=== PATIENT | male | born 1970 | race Caucasian/White ===

== ENCOUNTER 2016-12-20 12:43 | Inpatient (IN) | payer OTHER, SELFPAY ==
[~2016-12-20] VITALS: Ht 167.6 cm; Wt 92.1 kg
[2016-12-20 15:30] LABS: MEAN CORPUSCULAR HGB CONC 31.7 g/dl (32.0-36.5); MEAN CORPUSCULAR VOLUME 91.6 fl (80.0-96.0); RED CELL DISTRIBUTION WIDTH 13.1 % (11.5-14.5); WHITE BLOOD COUNT 7.3 K/mm3 (4.0-10.0)
[2016-12-20 15:48] LABS: METHADONE URINE NEGATIVE (NEGATIVE)
[2016-12-20 15:59] LABS: ALBUMIN 3.7 GM/DL (3.2-5.2); ALBUMIN/GLOBULIN RATIO 1.06 (1.00-1.93); ALKALINE PHOSPHATASE 70 U/L (45-117); ALT/SGPT 36 U/L (12-78); ANION GAP 9 MEQ/L (8-16); AST/SGOT 20 U/L (15-37); BILIRUBIN,DIRECT < 0.1 MG/DL (0.0-0.2); BILIRUBIN,TOTAL 0.3 MG/DL (0.2-1.0); BLOOD UREA NITROGEN 12 MG/DL (7-18); CALCIUM LEVEL 8.8 MG/DL (8.5-10.1); CARBON DIOXIDE LEVEL 29 MEQ/L (21-32); CHLORIDE LEVEL 105 MEQ/L (98-107); CREATININE FOR GFR 1.54 MG/DL (0.70-1.30); GLOMERULAR FILTRATION RATE 52.3 (>60); GLUCOSE, FASTING 134 MG/DL (70-105); SODIUM LEVEL 143 MEQ/L (136-145); TOTAL PROTEIN 7.2 GM/DL (6.4-8.2)
[2016-12-21] MEDS: SERTRALINE HCL 50 MG TAB PO SCH (09:00)
--- NOTE | 2016-12-21 09:26 | ECGEPIP ---
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
[2016-12-21] MEDS ORDERED: MAALOX 30 ML SUSP *UDC PO PRN (11:45)
[2016-12-21] MEDS ORDERED: LORazepam 1 MG TAB PO PRN (11:45)
[2016-12-21] MEDS ORDERED: traZODone 50 MG TAB PO PRN (11:45)
[2016-12-21] MEDS ORDERED: MOM 30ML SUSPENSION UDC PO PRN (11:45)
[2016-12-21] MEDS ORDERED: ACETAMINOPHEN TAB 650MG DOSE (2X325MG) PO PRN (11:45)
[2016-12-21 13:19] VITALS: BP 134/72
[2016-12-21 18:00] VITALS: BP 120/74
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
[2016-12-22 06:33] VITALS: BP 115/56
[2016-12-22] MEDS: SERTRALINE HCL 50 MG TAB PO SCH (08:45)
--- NOTE | 2016-12-22 09:52 | HPEPDOC ---
Medical History and Physical Date of Admission Dec 21, 2016 at 11:38 History and Physical PCP: KR[facility] ATTENDING: Dr. Eric Grubbs HPI: 46yoM admitted to [facility] for depression with SI, being medically examined today. No acute medical complaints today. Denies any fevers, chills, weakness, fatigue, BRAVO, CP, SOB, cough, palpitations, abdominal pain, N/V/D or changes in bowel or bladder habits. PMHx: Depression H/O SI 20 years ago. 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 ROS: As noted in HPI, otherwise 11pt ROS of systems reviewed and unremarkable. PE: GEN: 46yoM, appears stated age. Well-nourished, well developed. No acute distress. Alert and oriented x 3. Pleasant, interactive. HEENT: Normocephalic, atraumatic. Pupils are equal, round, and reactive to light. Extraocular movements are intact. No nystagmus appreciated. Sclera are nonicteric. Conjunctiva without injection. Nose midline. Nasal turbinates without bogginess. EACs both patent BL. TMs both visualized and mckeon with good cone of light, no bulging or erythema. No facial asymmetry. Moist mucous membranes. Dentition fair. Pharynx pink and moist, no cobblestoning. Neck supple , trachea midline. No lymphadenopathy or thyromegaly appreciated. CHEST: Regular rate and rhythm, +S1, +S2 LUNGS: Clear to auscultation bilaterally. No wheezes, rales, or rhonchi. Breathing appears symmetric and easy. Patient is speaking in full sentences. No accessory muscle use. ABD: Round, soft, non-tender, non-distended. +Bowel sounds throughout. No rebound or guarding. No costovertebral angle tenderness. EXT: Pulses 2+ bilaterally dorsalis pedis and radial. No lower extremity edema appreciated. SKIN: [place], dry, warm. Capillary refill <2sec. No rashes. NEURO: Alert and oriented x 3. Cranial nerves III-XII are intact. No focal deficits appreciated. EK12/20/16 SINUS RHYTHM NSTTW ABNORMALITY NO PRIOR FOR COMPARISON . A&P: 46yoM admitted to [facility] for depression with SI 1. Psych. Plan per Psychiatry. EKG on file. 2. elevated SCr. Serum creatinine 1.54 on admission. No prior results in chart. States he is eating and drinking better. Recheck BMP. 3. Abnormal TSH. Recheck TFTs. 4. Follow up with PCP on discharge. 5. Luis safety assistant, present throughout exam. Vital Signs Vital Signs Date Time Temp Pulse Resp B/P (MAP) Pulse Ox O2 Delivery O2 Flow Rate FiO2 12/22/16 06:33 98.5 66 16 115/56 (75) Room Air 12/21/16 13:19 98 Laboratory Data Labs 24H Item Value Date Time White Blood Count 7.3 K/mm3 12/20/16 1519 Red Blood Count 5.08 M/mm3 12/20/16 1519 Hemoglobin 14.7 g/dl 12/20/16 1519 Hematocrit 46.5 % 12/20/16 1519 Mean Corpuscular Volume 91.6 fl 12/20/16 1519 Mean Corpuscular Hemoglobin 29.0 pg 12/20/16 1519 Mean Corpuscular Hemoglobin Concent 31.7 g/dl L 12/20/16 1519 Red Cell Distribution Width 13.1 % 12/20/16 1519 Platelet Count 310 k/mm3 12/20/16 1519 Sodium Level 143 MEQ/L 12/20/16 1519 Potassium Level 4.0 MEQ/L 12/20/16 1519 Chloride Level 105 MEQ/L 12/20/16 1519 Carbon Dioxide Level 29 MEQ/L 12/20/16 1519 Anion Gap 9 MEQ/L 12/20/16 1519 Blood Urea Nitrogen 12 MG/DL 12/20/16 1519 Creatinine 1.54 MG/DL H 12/20/16 1519 Glomerular Filtration Rate 52.3 L 12/20/16 1519 Fasting Glucose 134 MG/DL H 12/20/16 1519 Calcium Level 8.8 MG/DL 12/20/16 1519 Total Bilirubin 0.3 MG/DL 12/20/16 1519 Direct Bilirubin < 0.1 MG/DL 12/20/16 1519 Aspartate Amino Transf (AST/SGOT) 20 U/L 12/20/16 1519 Alanine Aminotransferase (ALT/SGPT) 36 U/L 12/20/16 1519 Alkaline Phosphatase 70 U/L 12/20/16 1519 Total Protein 7.2 GM/DL 12/20/16 1519 Albumin 3.7 GM/DL 12/20/16 1519 Albumin/Globulin Ratio 1.06 12/20/16 1519 Thyroid Stimulating Hormone (TSH) 0.322 uIU/ML L 12/20/16 1519 Salicylates Level < 1.7 MG/DL L 12/20/16 1519 Urine Opiates Screen NEGATIVE 12/20/16 1515 Urine Methadone Screen NEGATIVE 12/20/16 1515 Acetaminophen Level < 2.0 UG/ML L 12/20/16 1519 Urine Barbiturates Screen NEGATIVE 12/20/16 1515 Urine Phencyclidine Screen NEGATIVE 12/20/16 1515 Urine Amphetamines Screen NEGATIVE 12/20/16 1515 Urine Benzodiazepines Screen NEGATIVE 12/20/16 1515 Urine Cocaine Metabolite Screen NEGATIVE 12/20/16 1515 Urine Cannabinoids Screen NEGATIVE 12/20/16 1515 Ethyl Alcohol Level 0.003 % 12/20/16 1519 Home Medications No Active Prescriptions or Reported Meds Allergies Coded Allergies: No Known Allergies (Unverified , 12/20/16) Andreia Kelly Dec 22, 2016 09:52
[2016-12-22 11:19] LABS: CALCIUM LEVEL 8.7 MG/DL (8.5-10.1); CREATININE FOR GFR 1.41 MG/DL (0.70-1.30); GLOMERULAR FILTRATION RATE 57.9 (>60); POTASSIUM SERUM 4.3 MEQ/L (3.5-5.1); THYROXINE (T4) 7.1 UG/DL (4.5-12.0)
--- NOTE | 2016-12-22 17:56 | IPNPDOC ---
[facility] Progress Note Progress Note DATE OF SERVICE: 12/22/16 HISTORY: 46 year old male with history of recently being admitted to the [facility]. Reportedly he was suicidal when he came to the emergency room but he has consistently denied this. He admits he was upset because his ex girlfriend, from whom he has been for about three weeks, called the police when he trespassed her property because he needed to talk to her because she has been smoking marijuana with her new boyfriend in front of the patient's son (she 's the mother). He got a restriction order and was fired from his job. he claims he is not willing to kill himself and that he knows how to handle this situation because he went through this before, with his first . he was started on zoloft 50 mgs. PO QAm but he refuse his medication this morning and he thinks he doesn't need it. VITAL SIGNS: See below. NEW TEST RESULTS: None CURRENT MEDICATIONS: See below. MENTAL STATUS EXAMINATION: Patient is a 46-year old male, who is alert, oriented, cooperative, friendly, with good eye contact and good rapport. Speech: Is normal. Language skills are good. Thought processes including: coherent, rationa. Thought content: Negative for homicidal ideation, negative for psychotic thoughts, negative for suicidal ideation.. Abstract reasoning, and computation: fair. Description of associations: No loosening of associations. Description of abnormal or psychotic thoughts: Not present. Judgment: Improving. Insight: Limited. Orientation: Oriented x 3. Recent and remote memory: Intact. Attention span and concentration: Fair. Language: Normal. Fund of knowledge: Full. Mood: "I'm not depressed, I can't get depressed. My children depend on me" Affect: Brighter, less amxious, les depressed DIAGNOSES: 1. Adjustment Disorder with depressed mood. ASSESSMENT:Pt. is much better today. He smiles, has a brighter affect. If he continues to be stable, even without medications, since he reused his Zoloft, he will be able to go home on Sunday. MANAGEMENT PLAN: continue hospitalization and re evaluate on Sunday for possible discharge. TIME SPENT: 25 minutes. Vital Signs Vital Signs Date Time Temp Pulse Resp B/P (MAP) Pulse Ox O2 Delivery O2 Flow Rate FiO2 12/22/16 06:33 98.5 66 16 115/56 (75) Room Air 12/21/16 13:19 98 Laboratory Data 24H Labs Laboratory Tests 2 12/22/16 10:34: Anion Gap 4L, Glomerular Filtration Rate 57.9L, Blood Urea Nitrogen 11, Creatinine 1.41H, Sodium Level 142, Potassium Level 4.3, Chloride Level 106, Carbon Dioxide Level 32, Calcium Level 8.7, Thyroid Stimulating Hormone (TSH) 0.342L, Free Thyroxine Index 2.4, Thyroxine (T4) 7.1, Triiodothyronine (T3) Uptake 34 CBC/BMP Laboratory Tests 12/22/16 10:34 Calcium Level 8.7 Current Medications Current Medications Acetaminophen (Tylenol Tab) 650 mg Q6HP PRN PO HEADACHE or DISCOMFORT; Start at 11:45; Stop 01/20/17 at 11:44 Al Hydrox/Mg Hydrox/Simethicone (Mylanta) 30 ml Q4HP PRN PO HEARTBURN/ INDIGESTION; Start 12/21/16 at 11:45; Stop 01/20/17 at 11:44 Home Med (Med Rec Complete!) ASDIRECTED XX ; Start 12/21/16 at 12:00; Stop at 12:00; Status DC Lorazepam (Ativan) 1 mg Q6HP PRN PO ANXIETY/AGITATION; Start 12/21/16 at 11:45 ; Stop 12/28/16 at 11:44 Magnesium Hydroxide (Milk Of Magnesia) 30 ml DAILYPRN PRN PO CONSTIPATION; Start 12/21/16 at 11:45; Stop 01/20/17 at 11:44 Sertraline HCl (Zoloft) 50 mg QAM PO ; Start 12/21/16 at 09:00; Stop 01/20/17 at 08:59 Trazodone HCl (Desyrel) 50 mg QHSP PRN PO INSOMNIA; Start 12/21/16 at 11:45; Stop 01/20/17 at 11:44 Allergies Coded Allergies: No Known Allergies (Unverified , 12/20/16) LEA BENJAMIN MD Dec 22, 2016 17:56
[2016-12-22 18:00] VITALS: BP 133/61
[2016-12-23 06:19] VITALS: BP 125/60
[2016-12-23] MEDS: SERTRALINE HCL 50 MG TAB PO SCH (08:43)
[2016-12-23 18:00] VITALS: BP 132/61
[2016-12-24 07:00] VITALS: BP 109/55
[2016-12-24] MEDS: SERTRALINE HCL 50 MG TAB PO SCH (08:46)
--- NOTE | 2016-12-24 09:47 | IPN ---
DATE: 12/23/2016 Hesham states to me that he has an order of protection on him. It is since his ex has been with someone else and that they were supposedly smoking weed in front of their son and he ended up with a trespassing violation and an order protection. He states he was concerned for the welfare of his son. His arraignment was last Sunday. There was no bail. Now he has lost his job and is fighting for custody of his son. 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 He had [facility] and after speaking with them and apparently voicing some vague suicidal thoughts he was brought here. His mood is presently good. No disturbance of speech. No disturbance of thought process. No loose associations. No abnormal or psychotic thoughts. Judgment and insight are good. He is fully oriented. Recent and remote memory are intact. Attention and concentration are intact. No disturbance of language. Full fund of knowledge. Mood is good. Affect is bright.
[2016-12-24 18:00] VITALS: BP 126/75
--- NOTE | 2016-12-24 19:03 | IPN ---
DATE: 12/24/2016 The patient is in a good mood. He has not been taking his antidepressant, does not feel he needs it. He is denying hallucinations. MENTAL STATUS EXAMINATION: Eye contact is good. The patient's affect is bright. Mood is good. Full fund of knowledge. He denies hallucinations, delusions, obsessions, compulsions and phobias. His speech is normal. Thought processes seem logical. He is somewhat sorrowful for his lack of judgment. Insight is good. No abnormal psychotic thoughts. He is fully oriented. Recent and remote memory intact. TREATMENT PLAN: As per Dr. Workman. DIAGNOSIS: Adjustment disorder with depressed mood.
[2016-12-25 06:01] VITALS: BP 114/59
[2016-12-25] MEDS: SERTRALINE HCL 50 MG TAB PO SCH (09:00)
--- NOTE | 2016-12-25 21:40 | DS.PDOC ---
[facility] Discharge Summary Discharge Summary DATE OF ADMISSION: Dec 21, 2016 at 11:38 DATE OF DISCHARGE: December 25, 2016 at 15:40 DISCHARGE DIAGNOSES: 1. Adjustment Disorder with Depressed Mood REASON FOR ADMISSION AND HISTORY/ HOSPITAL COURSE:PatIent got a restriction order for trespassing his ex girlfriends property because he needed to speak to her about her marijuana use in fron of their 3 year old child. She called the Police, he got a restriction order and then, he was fired from his job. he claims he has been going through a difficult situation with his ex girlfriend since she decided to end the relationship, because she was seeing another man, her current boyfriend. He went to the [place] but his Counselor brought him to the Emergency Room at [facility] because he thought he needed to be hospitalized. The emergency Department note states, at the beginning that he was not suicidal. Then, it changes and it states he was suicidal. He rodgers denied the suicidal ideation. States he was sad, but he has gone through this situation before, with his ex , and states he wont kill himself over these problems because he has to live for his children. (18,16 and 3). He was placed on Zoloft 50 mgs PO QHS and Trazodone 50 mgs. PO QHS but he refused the medications because he thought he didnt need them. he has been stable and on Sunday afternoon he was seen less depressed, less anxious. He smiled several times. He was kept over the weekend to protect him from hurting himself. He was seen this morning and he denied, once again, auicidal thoughts, homicidal thoughts and psychotic thoughts. CONSULTANTS INVOLVED: None TREATMENT AND PROGRESS ON THE UNIT : As above. HOSPITAL COURSE: As ABOVE DISCHARGE ASSESSMENT: Adjustment D/O with Depressed Mood MENTAL STATUS EXAMINATION ON DISCHARGE: Patient is a 46-year old male, who is alert, cooperative, good eye contact, good hygiene. Speech is normal. Language skills are normal. Thought processes including: goal directed, coherent, rational. Thought content: negative for SI, negative for HI, negative for psychotic thoughts, negative for zenon. Abstract reasoning, and computation: Good. Description of associations: Not loose. Description of abnormal or psychotic thoughts: Not present. Judgment: Improved. Insight: Improved. Orientation to Oriented x 3. Recent and remote memory: Intact. Attention span and concentration: Good. Language: Normal. Fund of knowledge: Full. Mood: "Im not depressed, I dont want to kill myself. Im OK". Affect: Euthymic. MEDICATIONS ON DISCHARGE: None PLAN/FOLLOWUP ARRANGEMENTS: Will f/u at the [place] The amount of time spent in the coordination of care for this patient was approximately 25 minutes. Vital Signs/I&Os Vital Signs Date Time Temp Pulse Resp B/P (MAP) Pulse Ox O2 Delivery O2 Flow Rate FiO2 12/25/16 06:01 98.9 63 16 114/59 (77) Room Air 12/21/16 13:19 98 Medications No Active Prescriptions or Reported Meds Allergies Coded Allergies: No Known Allergies (Unverified , 12/20/16) LEA BENJAMIN MD December 25, 2016 21:40
== END 2016-12-25 15:40 | disposition home or self-care (01) | DRG 881 ==
LOC: M ED 14:14 → M ED INP 12-21 11:38 → M PSY 12-21 13:10
PROVIDERS: ADMIT Psychiatry & Neurology Psychiatry; ATTEND Psychiatry & Neurology Psychiatry
DX: F43.21 Adjustment disorder with depressed mood (principal)

== ENCOUNTER 2017-01-27 02:04 | Emergency (ER) | payer OTHER ==
[~2017-01-27] VITALS: Ht 167.6 cm; Wt 89.8 kg
[2017-01-27] MEDS ORDERED: TRAZO50TA FT (02:17)
[2017-01-27] MEDS ORDERED: ZOLO50TA PO (02:17)
[2017-01-27] MEDS ORDERED: TRAZ25TA GT (02:17)
[2017-01-27] MEDS ORDERED: VITA100066 PO (02:18)
[2017-01-27 03:43] LABS: BASO % 0.2 % (0.0-1.0); EOS # 0.1 K/mm3 (0.0-0.50); EOS % 1.1 % (0.0-3.0); LARGE UNSTAINED CELL # 0.1 K/mm3 (0.0-0.4); LARGE UNSTAINED CELL % 1.6 % (0.0-4.0); LYMPH # 1.1 K/mm3 (1.5-4.5); LYMPH % 18.6 % (24.0-44.0); MEAN CORPUSCULAR HEMOGLOBIN 30.5 pg (27.0-33.0); MEAN CORPUSCULAR HGB CONC 33.1 g/dl (32.0-36.5); MEAN CORPUSCULAR VOLUME 91.9 fl (80.0-96.0); MONO # 0.4 K/mm3 (0.0-0.8); NEUTROPHILS # 4.3 K/mm3 (1.8-7.7); NEUTROPHILS % 72.5 % (36.0-66.0); PLATELET COUNT, AUTOMATED 249 k/mm3 (150-450); RED CELL DISTRIBUTION WIDTH 12.7 % (11.5-14.5)
[2017-01-27 04:07] LABS: ALBUMIN 3.5 GM/DL (3.2-5.2); ALBUMIN/GLOBULIN RATIO 0.95 (1.00-1.93); ALKALINE PHOSPHATASE 71 U/L (45-117); ALT/SGPT 80 U/L (12-78); AMYLASE 45 U/L (25-115); ANION GAP 8 MEQ/L (8-16); AST/SGOT 72 U/L (15-37); BILIRUBIN,DIRECT 0.1 MG/DL (0.0-0.2); BILIRUBIN,TOTAL 0.4 MG/DL (0.2-1.0); BLOOD UREA NITROGEN 12 MG/DL (7-18); CALCIUM LEVEL 8.6 MG/DL (8.5-10.1); CARBON DIOXIDE LEVEL 30 MEQ/L (21-32); CHLORIDE LEVEL 105 MEQ/L (98-107); CREATININE FOR GFR 1.39 MG/DL (0.70-1.30); GLOMERULAR FILTRATION RATE 58.8 (>60); GLUCOSE, FASTING 100 MG/DL (70-105); POTASSIUM SERUM 3.7 MEQ/L (3.5-5.1); SODIUM LEVEL 143 MEQ/L (136-145); TOTAL PROTEIN 7.2 GM/DL (6.4-8.2)
[2017-01-27] MEDS ORDERED: PRIL20CA9 PO (04:13)
[2017-01-27] MEDS ORDERED: GI COCKTAIL 50ML BTL(HYOSCYAMINE/MAALOX/LIDOCAINE VISCOUS)(1:3:1) PO ONE (04:15)
[2017-01-27 04:55] VITALS: BP 122/84
--- NOTE | 2017-01-27 07:34 | ECGEPIP ---
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
== END 2017-01-27 04:56 | disposition home or self-care (01) ==
LOC: M ED 02:31
DX: K29.70 Gastritis, unspecified, without bleeding (principal); F33.9 Major depressive disorder, recurrent, unspecified; Z79.899 Other long term (current) drug therapy; Z87.891 Personal history of nicotine dependence

== ENCOUNTER 2018-02-23 01:05 | Emergency (ER) | payer OTHER ==
[2018-02-23] MEDS: KETOROLAC TROMETHAMINE 10 MG TAB PO (01:45)
== END 2018-02-23 02:47 | disposition home or self-care (01) ==
LOC: M ED 01:05
DX: S50.311A Abrasion of right elbow, initial encounter (principal); S50.01XA Contusion of right elbow, initial encounter; S30.0XXA Contusion of lower back and pelvis, initial encounter; W10.8XXA Fall (on) (from) other stairs and steps, initial encounter; Y92.89 Other specified places as the place of occurrence of the external cause; G47.33 Obstructive sleep apnea (adult) (pediatric); F41.9 Anxiety disorder, unspecified; F32.9 Major depressive disorder, single episode, unspecified
CPT/HCPCS: 72220